=== PATIENT | male | born 1940 | race Caucasian/White ===

== ENCOUNTER 2025-06-07 21:46 | Emergency (ER) | payer OTHER, SELFPAY ==
[2025-06-07 21:57] VITALS: BP 151/69; PULSE 89; RESP 16; TEMP 36.5; O2SAT 95; BMI 25.1
== END 2025-06-07 23:29 | disposition left against medical advice (07) ==
PROVIDERS: Emergency Provider Emergency Medicine
DX: Z53.21 Procedure and treatment not carried out due to patient leaving prior to being seen by health care provider (principal)
CPT/HCPCS: 99281